=== PATIENT | male | born 1960 | race Caucasian/White ===

== ENCOUNTER → 2024-04-25 08:04 | Outpatient (CLI) | payer OTHER, SELFPAY ==
[2024-04-25 09:16] LABS: Hematocrit 46.6 % (41-53); Hemoglobin 15.8 g/dL (13.5-17.5); Mean Corpuscular Hemoglobin 29.5 PG (26-34); Mean Corpuscular Volume 86.7 fL (80-100); Platelet Count 237 X10^3/uL (150-400); Red Blood Cell Count 5.37 X10^6/uL (4.5-5.9); White Blood Cell Count 7.2 X10^3/uL (4.5-11.0)
[2024-04-25 09:27] LABS: Hemoglobin A1C% w Est Avg Glu 5.7 % (4.0-6.0)
[2024-04-25 09:40] LABS: Alanine Aminotransferase 27 IU/L (<50); Albumin 4.5 g/dL (3.5-5.0); Albumin Globulin Ratio 1.7 (1.0-2.8); Alkaline Phosphatase 57 U/L (38-126); Aspartate Aminotransferase 23 IU/L (17-59); Bilirubin Total 0.9 mg/dL (0.2-1.3); Blood Urea Nitrogen 28 mg/dL (9-20); Calcium 9.4 mg/dL (8.4-10.2); Carbon Dioxide 23 mmol/L (22-32); Chloride 106 mmol/L (98-107); Cholesterol 238 mg/dL (140-199); Estimated Glomerular Filt Rate > 60 mL/min (>60); Globulin 2.7 g/dL (1.7-4.1); Glucose 106 mg/dL (80-110); HDL Cholesterol 47 mg/dL (40-60); LDL Cholesterol Calculated 154 mg/dL (<100); Potassium 4.6 mmol/L (3.4-5.1); Sodium 137 mmol/L (137-145); Total Protein 7.2 g/dL (6.3-8.2); Triglycerides 187 mg/dL (35-150)
[2024-04-25 09:53] LABS: Creatinine Urine Random 130.72 mg/dL
[2024-04-25 09:58] LABS: Microalbumin Urine Random 0.7 mg/dL (0-1.6)
[2024-04-25 10:12] LABS: HEMOLYSIS < 15 (0-50); Prostate Specific Antigen Scrn 0.778 ng/mL (0.1-4.0)
== END ==
PROVIDERS: PCP Family Medicine; Referring Provider Family Medicine; Visit Provider Family Medicine
DX: E11.9 Type 2 diabetes mellitus without complications (principal); I10 Essential (primary) hypertension; E78.5 Hyperlipidemia, unspecified; Z12.5 Encounter for screening for malignant neoplasm of prostate
CPT/HCPCS: 36415; 80053; 80061; 82043; 82570; 83036; 85027; G0103

== ENCOUNTER → 2024-04-30 12:13 | Outpatient (CLI) | payer OTHER, SELFPAY ==
[2024-04-30 13:37] LABS: COVID-19 CEPHEID 4-PLEX PCR Negative (Negative); Influenza A - CEPHEID Flu A NEGATIVE (NEGATIVE); Influenza B - CEPHEID Flu B NEGATIVE (NEGATIVE); Respiratory Syncytial Virus Negative (Negative)
== END ==
PROVIDERS: PCP Family Medicine; Visit Provider Nurse Practitioner Family
DX: R05.9 Cough, unspecified (principal)
CPT/HCPCS: 0241U

== ENCOUNTER → 2024-09-01 08:49 | Outpatient (CLI) | payer MEDICARE, BC, SELFPAY ==
--- NOTE | 2024-09-01 08:52 | DI.MRI.S_ITS ---
PROCEDURE: MR BRAIN (IAC) WWO CON INDICATIONS: SUDDEN HEARING LOSS LEFT TECHNIQUE: Noncontrast sagittal T1 spin echo, axial FLAIR, axial gradient echo, axial diffusion and ADC through the brain. Axial thin-slice 3D CISS, coronal TruFISP, axial T1 spin echo with fat saturation through the internal auditory canals. After the administration of contrast, thin slice axial and coronal T1 spin echo with fat saturation through the internal auditory canals, and axial and coronal and sagittal T1 spin echo with fat saturation through the brain. COMPARISON: None. FINDINGS: Image quality: Excellent. Cerebellopontine angles: No cerebellopontine angle masses. Inner ear structures appear normally formed. No suspicious enhancement in the internal auditory canal or along the course of the 7th cranial nerve. CSF spaces: Ventricles are normal in size and shape. No extra-axial fluid collections. Basal cisterns are patent. Brain: No intracranial bleeds or mass effects. Gamble-white matter interface is intact. No abnormal intracranial enhancement. Diffusion weighted images demonstrate no acute ischemic insults. Brainstem appears normal. Normal intravascular flow voids are present. Skull and face: Calvarial marrow signal is normal. Orbits appear normal. Sinuses: Left maxillary sinus mucous retention cyst. Sinuses and mastoids are otherwise clear. IMPRESSION: No cause for patient's symptoms is identified. Normal appearance of the internal auditory canals and cerebellopontine angles. No acute intracranial abnormalities or abnormal intracranial enhancement. Approved by: Sotero Murguia M.D. on 09/01/2024 at 12:36
== END ==
PROVIDERS: PCP Family Medicine; Referring Provider Otolaryngology; Visit Provider Otolaryngology
DX: H91.22 Sudden idiopathic hearing loss, left ear (principal)
CPT/HCPCS: 70553; A9579

== ENCOUNTER 2024-09-25 08:58 | Day surgery (SDC) | payer MEDICARE, OTHER, SELFPAY ==
--- NOTE | 2024-09-25 | PATH_ITS ---
[facility] Accession Number: [id number] No. of containers..02 Tissue . 01 Material submitted: . PART A: colon - TRANSVERSE POLYP PART B: rectum - RECTAL POLYP . 01 Diagnosis: Part A: TRANSVERSE POLYP: Colonic mucosa with benign lymphoid aggregate. No neoplasm identified. . Part B: RECTAL POLYP: Hyperplastic polyp. STO 10/01/2024 1516 Local . 01 Electronically signed: . Amor Ruano MD, Pathologist NPI- [id number] . 01 Gross description: . Part A: TRANSVERSE POLYP: Received in formalin is 1 fragment(s) of oneill, soft tissue measuring 0.6 x 0.5 x 0.3 cm submitted entirely in 1 cassette(s) . Part B: RECTAL POLYP: Received in formalin is 1 fragment(s) of oneill, soft tissue measuring 0.6 x 0.3 x 0.3 cm submitted entirely in 1 cassette(s) /ROSY 10/01/2024 1516 Local . 01 Pathologist provided ICD-10: K62.1, K63.89 . 01 CPT . 602824, [id number] Specimen Comment: A courtesy copy of this report has been sent to [phone] Performed at: [address] [facility] [address], [place], [place] [id number] MD Amor Ruano MD Phone: [phone]
[2024-09-25 09:30] VITALS: BP 148/90; PULSE 63; RESP 16; TEMP 36.1; O2SAT 99
[2024-09-25] MEDS: LACTATED RINGERS 1,000 ML 42 ML IV (09:55)
--- NOTE | 2024-09-25 10:27 | PM.HP.IH.1 ---
History of Present Illness History of Present Illness Date Patient Seen: 09/25/24 Time Patient Seen: 10:28 Chief complaint: Colonoscopy Narrative: Tim is a 64-year-old man with a history of polyps who presents for a colonoscopy. His last colonoscopy was about 6 years ago at [facility]. He believes several small polyps were removed. No family history of colon cancer. PFSH Social History marital status: number of children: 2 household members: spouse and children lives independently: Yes Smoking Status: Former smoker Tobacco: How many years used: 35 alcohol intake: former substance use type: does not use Meds Home Medications and Allergies Home Medications ?Medication ?Instructions ?Recorded ?Confirmed ?Type ciclopirox 1 % shampoo 10 ml topical 2XW 04/24/24 05/15/24 History floucinonide oil topical 04/24/24 05/15/24 History lisinopril 5 mg tablet 5 mg PO DAILY #90 tabs 04/24/24 09/25/24 Rx tamsulosin 0.4 mg capsule 0.4 mg PO DAILY 04/24/24 09/25/24 History metformin 500 mg tablet,extended 500 mg PO DAILY #90 tabs 08/12/24 09/25/24 Rx release 24 hr aspirin 81 mg chewable tablet 1 tab PO DAILY 09/25/24 09/25/24 History evolocumab 140 mg/mL subcutaneous 140 mg SUBCUT Q2W hyperlipidemia 09/25/24 09/25/24 History pen injector (Esthela Love) Allergies Allergy/AdvReac Type Severity Reaction Status Date / Time rofecoxib (From Vioxx) AdvReac Mild PCV's Verified 09/25/24 09:26 Ketoconazole cream 2% AdvReac Mild rash Uncoded 09/25/24 09:26 Statin intolerance AdvReac Mild Mental Uncoded 09/25/24 09:26 Fog, muscle pain, fatigue Exam Vital Signs (past 8 hours): - 09/25/24 09:30 Temperature 97.0 F L Pulse Rate 63 Respiratory Rate 16 Blood Pressure 148/90 H Pulse Oximetry 99 Oxygen Delivery Method Room Air Oxygen Delivery Method Room Air Const General: healthy appearing Assessment & Plan Assessment and plan (1) History of colon polyps: Problem details: 2019: Polyps removed, 3-year follow-up recommended but deferred due to insurance costs Status: Acute Plan Colonoscopy for history of polyps Time-Based Coding :: [TOTAL MINUTES] spent with patient and on the chart (including review of chart, obtaining history, exam, reviewing outside data, placing orders, documenting exam and treatment plan, and counseling patient) on [DATE]. [employer] Insurance Office Supervisor Document charge(s): No
--- NOTE | 2024-09-25 10:56 | P.OP.COLON_ITS ---
Operative Date/Time/Diagnoses Date of procedure: 09/25/24 Time of procedure: 10:56 Pre-op diagnosis: History of polyps Post-op diagnosis: same Procedure & Clinicians Study performed: Colonoscopy Same procedure(s) as scheduled: Yes Surgeon: Travis Mendez Procedure Notes Procedure in detail: Surgeon: Travis Mendez MD Anesthesia: Mamie Ta OUTSIDE LABORER Procedure: The patient was brought to the endoscopy suite, placed in left lateral decubitus position. The patient was connected to monitoring devices. A time-out was performed. Sedation was administered. Once the patient was adequately sedated, a digital rectal exam was performed and was normal. The scope was then inserted and advanced to the cecum where the appendiceal orifice was identified and photographed. The scope was then slowly withdrawn over greater than 6 minutes. The mucosa was thoroughly inspected. There was a 5 mm polyp in the proximal transverse colon removed with a cold snare. There was a 5 mm polyp in the rectum removed with a cold snare. The scope was retroflexed in the rectum. No other abnormalities were found. The scope was straightened and removed. The patient was awakened and brought to recovery. Scope withdrawal time: 12 minutes Sedation time: 17 minutes EBL: 5 mL Findings: Small transverse polyp and small rectal polyp Post-procedure Disposition: PACU
[2024-09-25 10:58] VITALS: BP 133/84; PULSE 63; RESP 12; TEMP 36.1; O2SAT 99
[2024-09-25 11:03] VITALS: BP 133/88; PULSE 57; RESP 13; O2SAT 98
[2024-09-25 11:08] VITALS: BP 140/84; PULSE 56; RESP 13; O2SAT 99
[2024-09-25 11:13] VITALS: BP 148/94; PULSE 78; RESP 16; TEMP 36.3; O2SAT 99
[2024-09-25 11:19] VITALS: BP 146/95; PULSE 63; RESP 16; O2SAT 98
[2024-09-26 06:13] LABS: POC Glucose 103 mg/dL (70-99)
== END 2024-09-25 11:33 | disposition home or self-care (01) ==
PROVIDERS: PCP Family Medicine; Referring Provider Surgery; Visit Provider Surgery
PROC: 0DJD8ZZ Inspection of Lower Intestinal Tract, Via Natural or Artificial Opening Endoscopic (ICD-10-PCS; CPT 45378; principal; 2024-09-25 10:00)
DX: Z12.11 Encounter for screening for malignant neoplasm of colon (principal); Z86.0100 Personal history of colon polyps, unspecified; K62.1 Rectal polyp; K63.5 Polyp of colon; Z87.891 Personal history of nicotine dependence
CPT/HCPCS: 45385; 82962; J2704

== ENCOUNTER → 2024-10-28 07:21 | Outpatient (CLI) | payer MEDICARE, OTHER, SELFPAY ==
[2024-10-28 07:54] LABS: Hemoglobin A1C% w Est Avg Glu 5.9 % (4.0-6.0)
[2024-10-28 09:03] LABS: Alanine Aminotransferase 20 IU/L (<50); Albumin 4.3 g/dL (3.5-5.0); Albumin Globulin Ratio 1.7 (1.0-2.8); Alkaline Phosphatase 54 U/L (38-126); Blood Urea Nitrogen 32 mg/dL (9-20); Calcium 9.2 mg/dL (8.4-10.2); Carbon Dioxide 25 mmol/L (22-32); Chloride 102 mmol/L (98-107); Cholesterol 116 mg/dL (140-199); Estimated Glomerular Filt Rate > 60 mL/min (>60); Globulin 2.5 g/dL (1.7-4.1); Glucose 107 mg/dL (70-99); HDL Cholesterol 42 mg/dL (40-60); HEMOLYSIS < 15 (0-50); Potassium 4.9 mmol/L (3.4-5.1); Sodium 136 mmol/L (137-145); Total Protein 6.8 g/dL (6.3-8.2); Triglycerides 136 mg/dL (35-150)
== END ==
PROVIDERS: PCP Family Medicine; Referring Provider Family Medicine; Visit Provider Family Medicine
DX: E11.9 Type 2 diabetes mellitus without complications (principal); E78.2 Mixed hyperlipidemia; I10 Essential (primary) hypertension; I25.10 Atherosclerotic heart disease of native coronary artery without angina pectoris
CPT/HCPCS: 36415; 80053; 80061; 82172; 83036; 83695

== ENCOUNTER → 2024-12-30 17:22 | Outpatient (CLI) | payer MEDICARE, OTHER, SELFPAY ==
[2025-01-01 08:36] LABS: Rubeola Measles IgG 96.0 AU/mL (Immune >16.4)
== END ==
PROVIDERS: PCP Family Medicine; Referring Provider Family Medicine; Visit Provider Family Medicine
DX: Z01.84 Encounter for antibody response examination (principal)
CPT/HCPCS: 86735; 86762; 86765